=== PATIENT | male | born 1990 | race Caucasian/White ===

== ENCOUNTER 2024-11-04 16:42 | Emergency (ER) | payer OTHER, SELFPAY ==
--- NOTE | 2024-11-04 16:45 | ED_ITS ---
HPI - Wound/Laceration General Chief Complaint: Wound/Laceration Stated Complaint: right knee cut Time Seen by Provider: 11/04/24 16:44 Source: patient Mode of arrival: ambulatory Limitations: no limitations History of Present Illness HPI narrative: Julian is a 34-year-old male patient presenting to the clinic today with complaints of right knee laceration. He reports he was getting out of bed and cut his knee open on the corner of the metal bed frame. Has 6cm x 1cm wide cut to the right knee. Bleeding is controlled. Tetanus is unknown. Related Data Home Medications ?Medication ?Instructions ?Recorded ?Confirmed ?Last Taken ?Type metformin 1,000 mg tablet 1,000 mg PO BID 11/04/24 11/04/24 Unknown History Allergies Allergy/AdvReac Type Severity Reaction Status Date / Time No Known Allergies Allergy Verified 11/04/24 17:05 Review of Systems Review of Systems: Pertinent positives per HPI. Patient denies any fever, chills, rash, headache, visual changes, dizziness, cough, runny nose, sore throat, shortness of breath, chest pain, palpitations, nausea, vomiting, diarrhea, constipation, abdominal pain, or any urinary issues. [facility] Family History Family History Mother Hypertension Father Family history of diabetes mellitus in first degree relative Family history of coronary artery disease Other Cerebrovascular accident Diabetes mellitus Family history of arthritis Family history of cardiovascular disease Family history of malignant neoplasm Social History Social History Smoking status: Current every day smoker Second hand tobacco smoke exposure: Yes Alcohol intake: current Comments At the time of my signature, I reviewed and agree with the nursing past medical, surgical, social, and family history. There is no relevant family history pertinent to the patient complaint. Exam Narrative: General: Well-developed, well nourished, in no apparent distress Head: Normocephalic, atraumatic. Cardio: Regular rate and rhythm, s1 and s2 normal, no murmur appreciated. Resp: Clear to auscultation bilaterally, no rhonchi, rales, wheezing or rubs. Integumentary: [place], warm, and dry, intact without lesion, no rashes. Course Course Emergency Course: Portions of this record may have been created with voice recognition software. Level of Care: Express Care Visit Vital Signs Vital signs: Vital signs reviewed Procedures Laceration Laceration 1: Date: 11/04/24 Site: lower extremity (right knee) Side (If applicable): right Size (cm): 6 Description: linear Depth: simple, single layer Local Anesthetic: lidocaine 1% and with epi Amount of anesthesia used (mL): 7 Pre-repair: wound explored, irrigated and irrigated extensively ====== Skin Level ====== Skin layer closed with: nylon Size (cm): 4-0 Number of sutures: 12 Technique: simple, interrupted ====== Subcutaneous Layer ====== Subcutaneous layer closed with: vicryl Size: 4-0 Number of sutures: 6 Technique: simple, interrupted ====== Muscle Layer ====== ====== Tendon Layer ====== Dressing: Verbal consent obtained for laceration repair. Risk and benefits explained and patient voiced understanding. Area was cleansed with antiseptic wound wash, Betadine, and normal saline irrigation. And a 27 gauge needle was then used to instill (7) ml of 1% lidocaine with epi into the wound edges. Area was prepped and draped using sterile technique. A 4-0 suture on a p needle was used to place (6) interrupted sutures in the subcutaneous tissue for closure and (12) interrupted sutures in the skin bringing the wound edges together- well approximated. Patient tolerated procedure well. Sterile dressing applied. Knee immobilizer was applied MDM - Wound/Laceration MDM Narrative Medical decision making narrative: At the time of visit patient is resting comfortably on the exam table. Patient appears to be nontoxic. Procedures: Laceration repair was performed in the clinic today. 6 Vicryl sutures put in the subcutaneous tissue and 12 mono sutures were placed in the skin bringing the wound edges close well approximate Plan: Laceration repair was performed in the clinic today. Patient tolerated well. Knee immobilizer was given to the patient. Will also place the patient on cephalexin for antibiotic prophylaxis. Supportive measures were discussed with the patient and they voiced understanding discharge instructions and agrees to treatment plan. Return precautions reviewed Differential Diagnosis Differential diagnosis: Likely laceration, abscess, abrasion and avulsion of skin Discharge Plan Discharge Clinical Impression: Laceration Patient Disposition: Home, Self-Care Condition: Stable Instructions: Antibiotic Form, Laceration (ED) Additional Instructions: Leave bandage on for 24 hours then may remove and apply band aide covering as needed. Keep wound clean and dry Skin sutures out in 14 days. Take cephalexin as prescribed Wear knee immobilizer as discussed Watch for signs and symptoms of infection- redness, streaking, swelling, purulent discharge, or increase in pain. Follow up with your PCP for suture removal or return to the Express care. Patient Language: Iranian Prescriptions: New cephalexin 500 mg tablet 500 mg PO Q8H 7 Days Qty: 21 0RF No Action metformin 1,000 mg tablet 1,000 mg PO BID bupropion HCl [Wellbutrin SR] 150 mg tablet sustained-release 12 hr See Rx Instructions PO DAILY Qty: 60 2RF Rx Instructions: Start 150 mg PO qd x3 days, then BID thereafter; separate doses by 8h; last dose no later than 6pm; stop smoking after 5-7 days of tx Follow-up/Referrals: David,Radames Maldonado MD [Primary Care Provider] - Stand Alone Forms: Work/School Release IP Time of Disposition: 17:58 Quality NIHSS Nursing Documentation ED NIHSS nursing documentation: reviewed/agree
[2024-11-04] MEDS: TETANUS,DIPHTHERIA,AC PERTUSSIS ADULT (0.5 ML) BOOSTRIX IM (17:12)
[2024-11-04] MEDS: LIDO 1%/EPINEPHRINE 1:100,000 20 ML VIAL 10 ML INFILTRATE (17:15)
[2024-11-04 19:25] VITALS: BP 160/106; PULSE 91; RESP 16; TEMP 36.3; O2SAT 98
== END 2024-11-04 18:10 | disposition home or self-care (01) ==
PROVIDERS: Emergency Provider Nurse Practitioner Family; PCP Family Medicine
DX: S81.011A Laceration without foreign body, right knee, initial encounter (principal); W26.8XXA Contact with other sharp object(s), not elsewhere classified, initial encounter; F17.210 Nicotine dependence, cigarettes, uncomplicated; Z23 Encounter for immunization
CPT/HCPCS: 12002; 90471; 90715; 99213; G0463; J2004; L1830